=== PATIENT | female | born 1990 | race Two or more races ===

== ENCOUNTER 2018-05-25 10:45 | Emergency (ER) | payer MEDICAID ==
[~2018-05-25] VITALS: Ht 152.4 cm; Wt 56.4 kg
[~2018-05-25 10:45] MED LIST: IBUP-1223 PO; Iron PO; OXYC-302 PO; PNV1TABL11 PO; SENN-92 PO; SENN8.6C2 PO
[2018-05-25 11:05] VITALS: BP 105/71
--- NOTE | 2018-05-25 12:15 | NUR ---
EARS RINGING, CONGESTION AND SORE THROAT SINCE ELY
== END 2018-05-25 12:21 | disposition home or self-care (01) ==
LOC: ED 12:20
DX: H65.03 Acute serous otitis media, bilateral (principal); J06.9 Acute upper respiratory infection, unspecified
CPT/HCPCS: 71046; 87081; 87880; 99284

== ENCOUNTER 2018-09-16 15:11 | Emergency (ER) | payer MEDICAID, OTHER ==
[~2018-09-16] VITALS: Ht 152.4 cm; Wt 54.2 kg
[2018-09-16 15:16] VITALS: BP 112/78
[2018-09-16 16:16] LABS: HCG UR SG 1.013 (1.003-1.030); MICROSCOPIC AUTO
[2018-09-16 16:26] LABS: CULTURE INDICATED? YES
[2018-09-16] MEDS ORDERED: PHENAZOPYRIDINE 200 MG TABLET ONE (16:32)
[2018-09-16] MEDS ORDERED: NITROFURANTOIN (MACROBID) 100 MG CAPSULE ONE (16:33)
[2018-09-16] MEDS ORDERED: PHENAZOPYRIDINE 200 MG TABLET PO STA (16:56)
[2018-09-16] MEDS ORDERED: NITROFURANTOIN (MACROBID) 100 MG CAPSULE PO ONE (17:00)
== END 2018-09-16 17:26 | disposition home or self-care (01) ==
LOC: ED 17:04
DX: S39.012A Strain of muscle, fascia and tendon of lower back, initial encounter (principal); X58.XXXA Exposure to other specified factors, initial encounter; Y93.89 Activity, other specified; Y92.89 Other specified places as the place of occurrence of the external cause; Y99.8 Other external cause status; N30.00 Acute cystitis without hematuria
CPT/HCPCS: 72110; 81001; 81025; 87077; 87086; 87186; 99284

== ENCOUNTER 2018-09-17 08:34 | Emergency (ER) | payer OTHER ==
[~2018-09-17] VITALS: Ht 152.4 cm; Wt 53.6 kg
--- NOTE | 2018-09-17 08:48 | NUR ---
28 Y/O FEMALE PRESENTS TO ED WITH C/O VB. PER PT "I WAS HERE YESTERDAY AND THEY SAID I HAVE A BACK STRAIN AND A UTI. THIS MORNING I WOKE UP AND WENT PEE, THERE WAS BLOOD. I ALREADY HAD MY PERIOD ON THE . WHEN I WENT PEE THERE WAS BLOOD CLOTS. I STILL HAVE PAIN IN MY LOWER BACK AND NOW TO MY PELVIC." PT PLACED ON CONT PULSE OX,NIBP. NO C/O N/V/D, TRAUMA, SYNCOPE, CP, SOB.
[2018-09-17] MEDS ORDERED: ONDANSETRON 2MG/ML, 2ML IVPush ONE (09:00)
[2018-09-17] MEDS ORDERED: SODIUM CHLORIDE 0.9% 1,000ML IVBOLUS ONE (09:00)
[2018-09-17] MEDS ORDERED: MORPHINE SULFATE 4 MG/ML, 1ML IVPush PRN (09:00)
[2018-09-17] MEDS ORDERED: ONDANSETRON 2MG/ML, 2ML ONE (09:02)
[2018-09-17] MEDS ORDERED: MORPHINE SULFATE 4 MG/ML, 1ML ONE (09:02)
--- NOTE | 2018-09-17 09:18 | NUR ---
pt ambulatory with steady gait to bathroom.
--- NOTE | 2018-09-17 09:22 | NUR ---
IN TO REASSESS PT, PT GONE TO IMAGING. UA SENT TO LAB
[2018-09-17 09:36] LABS: BASOPHILS # (AUTO) 0.03 x10^3/uL (0-0.1); BASOPHILS % (AUTO) 1 % (0-1); EOSINOPHILS # (AUTO) 0.05 x10^3/uL (0-0.4); EOSINOPHILS % (AUTO) 1 % (1-7); LYMPHOCYTES # (AUTO) 1.46 x10^3/uL (1-3.4); LYMPHOCYTES % (AUTO) 21 % (22-44); MD NO; MEAN CORPUSCULAR HEMOGLOBIN 27.7 pg (27.0-34.8); MEAN CORPUSCULAR HGB CONC 32.5 g/dL (32.4-35.8); MEAN CORPUSCULAR VOLUME 85.2 fL (80-100); MEAN PLATELET VOLUME 8.7 fL (7.4-10.4); MONOCYTES # (AUTO) 0.87 x10^3/uL (0.2-0.8); MONOCYTES % (AUTO) 12 % (2-9); NEUTROPHILS # (AUTO) 4.72 x10^3/uL (1.8-6.8); NEUTROPHILS % (AUTO) 66 % (42-75); PLATELET COUNT 222 x10^3/uL (130-400); RED BLOOD COUNT 4.37 x10^6/uL (3.82-5.3); RED CELL DISTRIBUTION WIDTH 14.4 % (9.6-15.2)
[2018-09-17 09:47] LABS: ALANINE AMINOTRANSFERASE 20 U/L (12-78); ALBUMIN 3.6 g/dL (3.4-5.0); ANION GAP 5 mmol/L (5-15); CALCIUM 8.6 mg/dL (8.5-10.1); CHLORIDE 110 mmol/L (98-107)
[2018-09-17 09:49] LABS: CULTURE INDICATED? YES; MICROSCOPIC INDICATED
[2018-09-17 09:50] LABS: ALKALINE PHOSPHATASE 52 U/L (45-117); BILIRUBIN,TOTAL 0.8 mg/dL (0.2-1.0); CREATININE 0.77 mg/dL (0.55-1.02); TOTAL PROTEIN 7.8 g/dL (6.4-8.2)
--- NOTE | 2018-09-17 09:54 | NUR ---
PT BACK FROM IMAGING. PT REFUSING NARCOTIC PAIN MED AT THIS TIME. PT WANTS ZOFRAN. NO NEEDS REQUESTED AT THIS TIME.
--- NOTE | 2018-09-17 12:02 | NUR ---
Patient/Caregiver given discharge instructions and they have confirmed that they understand the instructions. Patient ambulatory with steady gait. PT LEFT WITH ALL PERSONAL BELONGINGS.
[2018-09-17 12:03] VITALS: BP 98/56
== END 2018-09-17 12:05 | disposition home or self-care (01) ==
LOC: ED 10:13
DX: N30.00 Acute cystitis without hematuria (principal); R11.10 Vomiting, unspecified
CPT/HCPCS: 36415; 76830; 80053; 81001; 83690; 85025; 87077; 87086; 96361; 96374; 99284; J2405; J7030; 87186